=== PATIENT | female | born 1950 | race Caucasian/White ===

== ENCOUNTER → 2020-02-03 | Outpatient (CLI) | payer OTHER, MEDICARE ==
[~2020-02-03] MED LIST: ACET-1600 PO; ATOR40TA78 PO; CARV40CP PO; DENO60DI INJ; MULT-658 PO
== END | disposition home or self-care (01) ==
LOC: STAR 10:40
PROVIDERS: ATTEND Obstetrics & Gynecology Female Pelvic Medicine and Reconstructive Surgery
DX: Z01.812 Encounter for preprocedural laboratory examination (principal); Z20.828 Contact with and (suspected) exposure to other viral communicable diseases; N93.9 Abnormal uterine and vaginal bleeding, unspecified; I48.91 Unspecified atrial fibrillation
CPT/HCPCS: 87635; 93005